=== PATIENT | female | born 1945 | race Caucasian/White ===

== ENCOUNTER → 2016-11-24 | Outpatient (CLI) | payer MEDICARE, BC ==
--- NOTE | 2016-11-25 07:55 | US ---
EXAMINATION TYPE: US kidneys/renal and bladder DATE OF EXAM: 11/24/2016 COMPARISON: NONE CLINICAL HISTORY: R94.4 Renal fuction abnormal. Abnormal labs EXAM MEASUREMENTS: Right Kidney: 9.5 x 5.0 x 4.5 cm Left Kidney: 9.3 x 4.1 x 4.3 cm Right Kidney: No hydronephrosis or masses seen Left Kidney: Cystic area visualized mid pole measuring 1.6 x 1.4 x 1.7 cm Bladder: wnl. Bilateral Jets seen: Yes left jet. Normal Post Void Residual: IMPRESSION: There is a small cyst in the interpolar left kidney. No hydronephrosis. We could not demonstrate a ri ght ureteral jet but there was no hydronephrosis on the right side. Urinary bladder appears within no rmal limits.
== END | disposition home or self-care (01) ==
LOC: RADUSWWP 15:31
PROVIDERS: ATTEND Internal Medicine
DX: N28.1 Cyst of kidney, acquired (principal)
CPT/HCPCS: 76770

== ENCOUNTER → 2019-02-15 | Outpatient (CLI) | payer MEDICARE, BC ==
--- NOTE | 2019-02-15 15:01 | CT ---
EXAMINATION TYPE: CT soft tissue neck wo con DATE OF EXAM: 02/15/2019 COMPARISON: None HISTORY: 73-year-old female Neck swelling and cough. TECHNIQUE: Contiguous axial scanning of the soft tissues of the neck without IV contrast. Coronal and sagittal reconstructions performed. CT DLP: 1169 mGycm Automated exposure control for dose reduction was used. FINDINGS: Visualized intracranial structures, orbits and globes, paranasal sinuses, and mastoid air cells appea r clear. Lack of IV contrast limits assessment of the mucosal space. There is prominent motion at the nasopharynx and junction with the oropharynx further limiting assess ment. Oropharynx shows no gross abnormality. Glottic and subglottic structures as well as the tracheal column and visualized upper lungs appear cl ear. Left breast reconstruction partially visualized. Noncontrast appearance of the thyroid gland, submandibular glands, and parotid glands show no gross a bnormality. Allowing for noncontrast CT, no cervical lymphadenopathy identified. 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 IMPRESSION: 1. EXAM LIMITATIONS DUE TO LACK OF IV CONTRAST AND PROMINENT MOTION PARTICULARLY AT THE LEVEL OF THE NASOPHARYNX AND JUNCTION WITH THE OROPHARYNX. UNABLE TO EXCLUDE A MUCOSAL LESION AT THIS LEVEL. DIREC T VISUALIZATION INDICATED. 2. NO LYMPHADENOPATHY OR OTHER OBVIOUS NECK MASS IDENTIFIED ALLOWING FOR NONCONTRAST TECHNIQUE.
== END | disposition home or self-care (01) ==
LOC: RADCTMAIN 12:15
PROVIDERS: ATTEND Internal Medicine
DX: R59.0 Localized enlarged lymph nodes (principal)
CPT/HCPCS: 70490

== ENCOUNTER → 2019-02-16 | Day surgery (SDC) | payer MEDICARE, BC ==
[2019-02-14 11:36] VITALS: BMI 43.9
[~2019-02-16] MED LIST: BALANCED SALT IRRIG SOLN COMB2 15 ML IRRIG.SOLN IRRIGATION ONE; DUOVISC KIT (GREEN BOX) INTRAOCULA ONE; EPINEPHrine (PF) 0.3 ML in BALANCED SALT IRRIG SOLN COMB2 500 ML IRRIGATION ONE; LACTATED RINGERS 1,000 ML IV SCH; LIDOCAINE 1% (PF) 10MG/ML VIAL SQ ONE; LIDOCAINE 1% 20 ML VIAL (10MG/ML) FOR IV START INTRADERMA PRN; MOXIFLOXACIN HCL 0.5% DROPS 3 ML BTL OP ONE; TETRACAINE 0.5% OPHTH (PF) DROPS 4 ML BTL OP ONE; TIMOLOL 0.5% OPHTH DROPS 5 ML BTL OP ONE; TRYPAN BLUE 0.06% SYRINGE 0.5 ML SYRINGE INTRAOCULA ONE
[2019-02-16] MEDS: CYCLOPENTOLATE 1% OPHTH SOLN 2 ML BTL OP ONE ×3 (12:00→12:15)
[2019-02-16] MEDS: PHENYLEPHRINE 2.5% OPHTH DRP 2ML OP NR ×3 (12:05→12:20)
[2019-02-16 12:09] VITALS: TEMP 97.2
--- NOTE | 2019-02-16 15:10 | P.OP ---
Date of Procedure: 02/16/19 Preoperative Diagnosis: NS & CS & POAG Postoperative Diagnosis: same Procedure(s) Performed: PIOL OD & iStent Implants: [id number] 18.50 Anesthesia: MAC Surgeon: Ezra Carlisle Estimated Blood Loss (ml): 0 Pathology: none sent Condition: stable Disposition: same day Indications for Procedure: BLURRY VISION AND GLAUCOMA Operative Findings: No complications
[2019-02-16 15:40] VITALS: BP 145/81; PULSE 72; RESP 18
--- NOTE | 2019-02-16 23:20 | OP ---
OPERATIVE REPORT DATE OF SURGERY: 02/16/2019. PROCEDURE: Phacoemulsification of cataract and intraocular lens implant of the right eye with I- Stent of the right eye. 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 SURGEON: Dr. Ezra Carlisle. ANESTHESIA: Topical. ESTIMATED BLOOD LOSS: None. SPECIMEN TAKEN: None. NARRATIVE: After obtaining the appropriate consent, the patient was brought to the operating room. There she was placed under cardiac monitoring, prepped and draped in the usual sterile manner. She was approached from her right temporal side, and using previously acquired corneal topography information, the axis of 95 degrees was identified and marked with a corneal marking instrument. At the 11 o'clock position an MVR blade was used to create a paracentesis port. Through this opening, 1% xylocaine MPF 50:50 mix with balanced salt solution was injected into the anterior chamber. This was followed by Trypan blue, which was left in place for one minute. Following the dwell time, the Trypan was irrigated away from the anterior chamber with balanced salt solution and the anterior chamber was then stabilized with Viscoat. At the 9 o'clock position, a 2.5 mm keratome was used to create a self-sealing corneal flap incision. The patient was then asked to rotate her head approximately 45 degrees to her left, and a gonioprism was placed on the patient's cornea. The previously stained trabecular meshwork was easily identified and an I-Stent model GTS 100L was passed across the anterior chamber and implanted within the trabecular meshwork without difficulty. The patient was then rotated to the normal supine position and a cystotome was then introduced to begin a continuous tear capsulorrhexis which was completed using the Utrata forceps. Hydrodissection and hydrodelineation of the lens were accomplished with balanced salt solution. Phacoemulsification of the lens utilizing phaco chop was accomplished in 10.16 seconds at 10% power. Following removal of the cortex, a small amount of xylocaine MPF was instilled into the anterior chamber. This was followed by removal of the remaining cortex from in and around the capsular bag as well as careful polishing of the posterior capsule in the capsule vacuum mode. Provisc was then used to stabilize the capsular bag and a Jero & Jero posterior chamber intraocular lens model ZCT 300 18.5 diopter spherical equivalent posterior chamber intraocular lens was delivered into the capsular bag without difficulty. Following removal of the remaining viscoelastic, the lens was oriented with the previously noted corneal astigmatism trista at the 95- degree axis and the lens was tamponaded against the posterior capsule to ensure stability. The eye was then brought to normal intraocular pressure through the paracentesis port, and ensuring that the eye remained watertight, the temporal incision was hydrated slightly with balanced salt solution. The patient then received 2 drops of 0.5% timolol followed by 2 drops of moxifloxacin, was then lightly patched and shielded in the usual manner. There were no complications from the procedure. She tolerated the procedure well and was returned to Recovery in good condition. MMTITAL / VENITAN: [id number] /
== END | disposition home or self-care (01) ==
LOC: OR 10:09
PROVIDERS: ATTEND Ophthalmology
DX: H40.1131 Primary open-angle glaucoma, bilateral, mild stage (principal); H25.13 Age-related nuclear cataract, bilateral; H25.013 Cortical age-related cataract, bilateral; H04.129 Dry eye syndrome of unspecified lacrimal gland; H20.00 Unspecified acute and subacute iridocyclitis; H35.033 Hypertensive retinopathy, bilateral; H52.223 Regular astigmatism, bilateral; H52.4 Presbyopia; H52.11 Myopia, right eye; I10 Essential (primary) hypertension; E78.5 Hyperlipidemia, unspecified; M10.9 Gout, unspecified; I89.0 Lymphedema, not elsewhere classified; Z88.0 Allergy status to penicillin; Z79.899 Other long term (current) drug therapy; Z79.82 Long term (current) use of aspirin; Z90.12 Acquired absence of left breast and nipple; Z90.710 Acquired absence of both cervix and uterus; Z96.652 Presence of left artificial knee joint; Z85.3 Personal history of malignant neoplasm of breast; Z92.21 Personal history of antineoplastic chemotherapy; Z92.3 Personal history of irradiation; Z97.3 Presence of spectacles and contact lenses; Z82.49 Family history of ischemic heart disease and other diseases of the circulatory system
CPT/HCPCS: 66984; 66183; V2787; C1780; C1783; J0171; J2001

== ENCOUNTER 2019-03-16 07:19 | Day surgery (SDC) | payer MEDICARE, BC ==
[2019-03-11 16:16] VITALS: BMI 43.9
[~2019-03-16 07:19] MED LIST changes: -BALANCED SALT IRRIG SOLN COMB2 15 ML IRRIG.SOLN IRRIGATION ONE; +CYCLOPENTOLATE 1% OPHTH SOLN 2 ML BTL OP ONE; -DUOVISC KIT (GREEN BOX) INTRAOCULA ONE; -EPINEPHrine (PF) 0.3 ML in BALANCED SALT IRRIG SOLN COMB2 500 ML IRRIGATION ONE; -LIDOCAINE 1% (PF) 10MG/ML VIAL SQ ONE; +PHENYLEPHRINE 2.5% OPHTH DRP 2ML OP NR; -TRYPAN BLUE 0.06% SYRINGE 0.5 ML SYRINGE INTRAOCULA ONE
[2019-03-16 07:50] VITALS: RESP 16; TEMP 97
[2019-03-16] MEDS ORDERED: BALANCED SALT IRRIG SOLN COMB2 15 ML IRRIG.SOLN IRRIGATION ONE (08:22)
[2019-03-16] MEDS ORDERED: HYALURONATE SODIUM INTRAOCULAR 1 EACH SYRINGE (12MG/ML) INTRAOCULA ONE (08:22)
[2019-03-16] MEDS ORDERED: LIDOCAINE 1% (PF) 10MG/ML VIAL SQ ONE (08:22)
[2019-03-16] MEDS ORDERED: MIDAZOLAM 2 MG/2 ML VIAL ONE (08:43)
[2019-03-16] MEDS ORDERED: fentaNYL (PF) 50 MCG/ML 2 ML AMP ONE (08:43)
[2019-03-16] MEDS ORDERED: EPINEPHrine (PF) 0.3 ML in BALANCED SALT IRRIG SOLN COMB2 500 ML IRRIGATION ONE (08:54)
[2019-03-16] MEDS ORDERED: TRYPAN BLUE 0.06% SYRINGE 0.5 ML SYRINGE INTRAOCULA ONE (08:56)
[2019-03-16] MEDS ORDERED: DUOVISC KIT (GREEN BOX) INTRAOCULA ONE (08:57)
[2019-03-16] MEDS ORDERED: CHONDROITIN-SOD HYALURONATE 1 EACH SYRINGE (0.75 ML) INTRAOCULA ONE (09:02)
--- NOTE | 2019-03-16 09:24 | P.OP ---
Date of Procedure: 03/16/19 Preoperative Diagnosis: NS & CS & reg astig & POAG mild stg Postoperative Diagnosis: same Procedure(s) Performed: PIOL, OS Implants: [id number] 20.50, [id number] Anesthesia: MAC Surgeon: Ezra Carlisle Estimated Blood Loss (ml): 0 Pathology: none sent Condition: stable Disposition: same day Indications for Procedure: blurry vision Operative Findings: No complications
[2019-03-16 09:52] VITALS: BP 117/68; PULSE 68
--- NOTE | 2019-03-16 17:04 | OP ---
OPERATIVE REPORT DATE OF SURGERY: 03/16/2019. PROCEDURE: Phacoemulsification of cataract and intraocular lens implant of the left eye with an iStent implantation, left eye. PREOPERATIVE DIAGNOSES: Nuclear sclerosis, cortical sclerosis, regular astigmatism and primary open-angle glaucoma, mild stage. POSTOPERATIVE DIAGNOSES: Nuclear sclerosis, cortical sclerosis, regular astigmatism and primary open-angle glaucoma, mild stage. SURGEON: Dr. Ezra Carlisle. ANESTHESIA: Topical. ESTIMATED BLOOD LOSS: None. SPECIMEN TAKEN: None. NARRATIVE: After obtaining the appropriate consent, the patient was brought to the operating room. There she was asked to sit upright, and the axes of 0 and 180 degrees were identified and marked with a gentian lissette marker. She was then placed in the proper supine position under cardiac monitoring, then prepped and draped in the usual sterile manner. She was approached from her left temporal side and using previously acquired corneal topography information, the axis of 78 degrees was identified and marked with a corneal axis marking instrument. At the 5 o'clock position an MVR blade was used to create a paracentesis port. Through this opening 1% xylocaine MPF 50:50 mix with balanced salt solution was injected into the anterior chamber. This was followed by instillation of trypan blue, which was left in place for one minute. This was irrigated away and replaced with Viscoat. At the 3 o'clock position, a 2.5 mm keratome was used to create a self-sealing corneal flap incision. The patient was then asked to rotate her head approximately 45 degrees to her right and maintain a gaze in that general direction. Previously stained trabecular meshwork was identified and a Glaukos iStent was placed into the trabecular meshwork without difficulty. The patient was then rotated back to the normal supine position and a cystotome was used to begin a continuous tear capsulorrhexis, which was completed using the Utrata forceps. Hydrodissection and hydrodelineation of the lens were accomplished with balanced salt solution. Phacoemulsification of lens utilizing phaco chop was accomplished in 1.23 seconds at 11% power. Additional xylocaine MPF was instilled into the anterior chamber. This was followed by removal of the remaining cortex under irrigation and aspiration along with careful polishing of the posterior capsule in the capsule vacuum mode. Provisc was then used to stabilize the capsular bag and a Jero & Jero [id number] 20.5 diopter posterior chamber intraocular lens was then injected into the capsular bag without difficulty. The remaining viscoelastic was removed from in and around the intraocular lens and the lens was then rotated so that its axis aligned with the axis of 78 degrees previously identified and marked on the patient's sclera. Once the lens was properly positioned, the lens was slightly tamponaded and the eye was brought to normal intraocular pressure through the paracentesis port and the eye was confirmed watertight. She then received 2 drops of 0.5% timolol followed by 2 drops of moxifloxacin and was then lightly patched and shielded in the usual manner. There were no complications from the procedure. She tolerated the procedure well and was returned to Outpatient Recovery in good condition. MMODL / IJN: [id number] /
== END 2019-03-16 10:03 | disposition home or self-care (01) ==
LOC: OR 07:19
PROVIDERS: ATTEND Ophthalmology
DX: H25.12 Age-related nuclear cataract, left eye (principal); H25.012 Cortical age-related cataract, left eye; H40.1131 Primary open-angle glaucoma, bilateral, mild stage; H52.223 Regular astigmatism, bilateral; H20.00 Unspecified acute and subacute iridocyclitis; H35.033 Hypertensive retinopathy, bilateral; H52.4 Presbyopia; H52.11 Myopia, right eye; Z96.1 Presence of intraocular lens; I10 Essential (primary) hypertension; H91.90 Unspecified hearing loss, unspecified ear; J30.2 Other seasonal allergic rhinitis; M10.9 Gout, unspecified; Z90.710 Acquired absence of both cervix and uterus; Z90.12 Acquired absence of left breast and nipple; Z96.652 Presence of left artificial knee joint; Z85.3 Personal history of malignant neoplasm of breast; Z92.21 Personal history of antineoplastic chemotherapy; Z92.3 Personal history of irradiation; Z80.3 Family history of malignant neoplasm of breast; Z82.49 Family history of ischemic heart disease and other diseases of the circulatory system; Z79.82 Long term (current) use of aspirin; Z79.899 Other long term (current) drug therapy; Z88.0 Allergy status to penicillin
CPT/HCPCS: 66984; 66183; V2787; C1780; C1783; J2250; J0171; J3010; J2001

== ENCOUNTER 2019-03-21 13:38 | Day surgery (SDC) | payer MEDICARE, BC ==
[~2019-03-21 13:38] MED LIST changes: -CYCLOPENTOLATE 1% OPHTH SOLN 2 ML BTL OP ONE; -LACTATED RINGERS 1,000 ML IV SCH; -LIDOCAINE 1% 20 ML VIAL (10MG/ML) FOR IV START INTRADERMA PRN; -PHENYLEPHRINE 2.5% OPHTH DRP 2ML OP NR
[2019-03-21 14:06] VITALS: TEMP 97.4
[2019-03-21] MEDS ORDERED: LACTATED RINGERS 1,000 ML IV ONE (14:09)
[2019-03-21] MEDS ORDERED: ONDANSETRON 4 MG/2 ML VIAL IVP ONE (14:20)
[2019-03-21] MEDS ORDERED: FAMOTIDINE 20 MG/2 ML VIAL IV ONE (14:20)
[2019-03-21] MEDS ORDERED: DEXAMETHASONE SOD PHOSPHATE 10 MG/ML 1 ML VIAL IV ONE (14:21)
[2019-03-21] MEDS ORDERED: MIDAZOLAM 2 MG/2 ML VIAL ONE (14:33)
[2019-03-21] MEDS ORDERED: fentaNYL (PF) 50 MCG/ML 2 ML AMP ONE (14:33)
[2019-03-21 14:44] LABS: Potassium 3.7 mmol/L (3.5-5.1)
[2019-03-21] MEDS ORDERED: BALANCED SALT IRRIG SOLN COMB2 500 ML IRRIGATION ONE (14:53)
[2019-03-21] MEDS ORDERED: LIDOCAINE 1% (PF) 10MG/ML VIAL SQ ONE (14:53)
[2019-03-21] MEDS ORDERED: FLUORESCEIN STRIPS 1 MG STRIP LEFT EYE ONE (14:56)
[2019-03-21] MEDS ORDERED: ACETAMINOPHEN TAB 325 MG TAB PO ONE (15:15)
[2019-03-21] MEDS ORDERED: fentaNYL (PF) 50 MCG/ML 2 ML AMP IVP ONE (15:52)
[2019-03-21 16:15] VITALS: BP 155/97; PULSE 77; RESP 20
--- NOTE | 2019-03-21 23:27 | OP ---
OPERATIVE REPORT DATE OF SURGERY: 21 March 2019. PROCEDURE PERFORMED: Removal of lens fragment in the anterior chamber, left eye. POSTOPERATIVE DIAGNOSIS: SURGEONS: Dr. Ezra Carlisle. ANESTHESIA: Topical. ESTIMATED BLOOD LOSS: Is none. SPECIMEN: Taken none. NARRATIVE: Approximately 5 days following cataract surgery, the patient presented to the office for examination following a fall and bumping of her forehead. No problems were noted in terms of ocular trauma or injury following the fall. However, a small amount of epithelial capsular remnant was adherent to the endothelium in the line of sight due to the problem with corneal edema caused by covering the endothelium in the cornea. There was continuous swelling and that tissue needed to be removed. Therefore, the patient was admitted this afternoon to remove that piece of tissue. Therefore, after obtaining the appropriate consents to remove the capsular remnant. The patient was brought to the operating room there she was placed under cardiac monitoring, prepped and draped in the usual sterile manner. She was approached from her left temporal side. As the wound incisions were recent gently applying pressure against both the temporal and the previous paracentesis, the eye was able to be opened at the 5 o'clock position. Xylocaine MPF 50/50 mix of balanced salt solution was injected into the anterior chamber. This was followed by placement of the irrigation aspiration unit in the anterior chamber and gently removing the capsular epithelial remnant from the endothelial surface of the cornea. The eye was then brought to normal intraocular pressures through the paracentesis port and the eye was confirmed watertight with a fluorescein strip. She then received 2 drops of 0.5% timolol followed by moxifloxacin drops was then lightly patched and shielded in the usual manner. There were no complications from the procedure. She tolerated the procedure well and was returned to outpatient recovery in good condition. MMODL / IJN: [id number] /
== END 2019-03-21 16:20 | disposition home or self-care (01) ==
LOC: OR 13:38
PROVIDERS: ATTEND Ophthalmology
DX: H59.022 Cataract (lens) fragments in eye following cataract surgery, left eye (principal); H40.1131 Primary open-angle glaucoma, bilateral, mild stage; H20.00 Unspecified acute and subacute iridocyclitis; H35.033 Hypertensive retinopathy, bilateral; H52.223 Regular astigmatism, bilateral; H52.4 Presbyopia; H52.11 Myopia, right eye; I10 Essential (primary) hypertension; M10.9 Gout, unspecified; H91.90 Unspecified hearing loss, unspecified ear; J30.2 Other seasonal allergic rhinitis; J34.9 Unspecified disorder of nose and nasal sinuses; Z98.42 Cataract extraction status, left eye; Z98.41 Cataract extraction status, right eye; Z88.0 Allergy status to penicillin; Z90.710 Acquired absence of both cervix and uterus; Z96.652 Presence of left artificial knee joint; Z90.12 Acquired absence of left breast and nipple; Z85.3 Personal history of malignant neoplasm of breast; Z92.3 Personal history of irradiation; Z92.21 Personal history of antineoplastic chemotherapy; Z79.82 Long term (current) use of aspirin; Z79.899 Other long term (current) drug therapy; Z97.3 Presence of spectacles and contact lenses; Z80.3 Family history of malignant neoplasm of breast; Z82.49 Family history of ischemic heart disease and other diseases of the circulatory system; W19.XXXA Unspecified fall, initial encounter
CPT/HCPCS: 80051; 66840; J2250; J1100; J2405; J3010; J2001

== ENCOUNTER → 2020-07-25 | Outpatient (CLI) | payer MEDICARE ==
[2020-07-25 12:17] LABS: Appearance,Urine Clear (Clear); Bilirubin,Urine Negative (Negative); Blood,Urine Negative (Negative); Color,Urine Yellow; Glucose,Urine (UA) Negative (Negative); Ketones,Urine Negative (Negative); Leukocyte Esterase,Urine Negative (Negative); Nitrite,Urine Negative (Negative); Protein,Urine Negative (Negative); Specific Gravity,Urine 1.024 (1.001-1.035); Urobilinogen,Urine <2.0 mg/dL (<2.0)
[2020-07-25 12:27] LABS: Creatinine,Urine Random 181.1 mg/dL; Protein/Creatinine Ratio,Urine 0.044
[2020-07-25 19:40] LABS: Basophils # (A) 0.05 X 10*3/uL (0.00-0.10); Eosinophils # (A) 0.36 X 10*3/uL (0.04-0.35); Eosinophils % (A) 7.4 %; HCT 35.9 % (37.2-46.3); HGB 11.7 g/dL (12.0-15.0); Lymphocytes # (A) 1.08 X 10*3/uL (0.90-5.00); Lymphocytes % (A) 22.2 %; MCH 33.1 pg (27.0-32.0); MCHC 32.6 g/dL (32.0-37.0); MCV 101.4 fL (80.0-97.0); Mean Platelet Volume 9.8 fL (9.5-12.2); Monocytes # (A) 0.42 X 10*3/uL (0.20-1.00); Monocytes % (A) 8.6 %; Neutrophils # (A) 2.94 X 10*3/uL (1.80-7.70); Neutrophils % (A) 60.4 %; Platelet Count 252 X 10*3/uL (140-440); RBC 3.54 X 10*6/uL (4.10-5.20); RDW 14.3 % (11.5-14.5); WBC 4.87 X 10*3/uL (4.50-10.00)
[2020-07-26 01:03] LABS: % Iron Saturation 28.17 (12.00-45.00); African American GFR (CKD) 52.3 (60.0-200.0); Anion Gap 8.3 mmol/L (4.00-12.00); BUN/Creat Ratio 24.17 Ratio (12.00-20.00); Calcium 9.3 mg/dL (8.7-10.3); Carbon Dioxide 25.7 mmol/L (21.6-31.8); Magnesium 2.1 mg/dL (1.5-2.4); Non-African American GFR(CKD) 45.1 (60.0-200.0); Phosphorus 3.3 mg/dL (2.4-5.1); Uric Acid 6.1 mg/dL (2.9-7.7)
[2020-07-26 01:11] LABS: Ferritin 242.5 ng/mL (10.0-291.0)
== END | disposition home or self-care (01) ==
LOC: LABWHC1 09:39
PROVIDERS: ATTEND Internal Medicine
DX: E55.9 Vitamin D deficiency, unspecified (principal); N25.81 Secondary hyperparathyroidism of renal origin; N39.0 Urinary tract infection, site not specified; D64.9 Anemia, unspecified; M10.9 Gout, unspecified; R80.9 Proteinuria, unspecified
CPT/HCPCS: 36415; 80048; 81003; 82040; 82306; 82570; 82728; 83540; 83550; 83735; 83970; 84100; 84156; 84550; 85025